=== PATIENT | female | born 1990 | race Caucasian/White ===

== ENCOUNTER 2017-06-16 06:43 | Emergency (ER) | payer MEDICARE, MEDICAID | END 2017-06-16 07:20 | disposition home or self-care (01) | LOC: BURERS 06:43 | DX: F41.9 Anxiety disorder, unspecified (principal); G24.9 Dystonia, unspecified; G80.9 Cerebral palsy, unspecified; F84.0 Autistic disorder; G40.909 Epilepsy, unspecified, not intractable, without status epilepticus; F31.9 Bipolar disorder, unspecified; Z79.899 Other long term (current) drug therapy | CPT/HCPCS: 99284 ==

== ENCOUNTER 2017-10-03 19:54 | Emergency (ER) | payer MEDICARE, OTHER ==
[2017-10-03] MEDS ORDERED: Clindamycin 150 MG CAP ONE (20:11)
== END 2017-10-03 20:15 | disposition home or self-care (01) ==
LOC: BURERS 19:54
DX: L03.113 Cellulitis of right upper limb (principal); F31.9 Bipolar disorder, unspecified; F84.0 Autistic disorder; Z79.899 Other long term (current) drug therapy
CPT/HCPCS: 99283